=== PATIENT | female | born 1970 | race African-American/Black ===

== ENCOUNTER 2020-10-15 12:00 | Inpatient (IN) | payer OTHER ==
[2020-11-21 12:00] VITALS: BMI 28.1
[2020-11-26] MEDS ORDERED: LIDOCAINE HCL/PF 2% SDV 5ML VIAL ONE (10:13)
[2020-11-26] MEDS ORDERED: PROPOFOL 20 ML ONE (10:13)
[2020-11-26] MEDS ORDERED: fentaNYL CITRATE 250 MCG/5 ML VIAL ONE (10:13)
[2020-11-26] MEDS ORDERED: MIDAZOLAM HCL 2 MG/2 ML SINGLE DOSE VIAL ONE ×2 (10:14)
[2020-11-26] MEDS ORDERED: ROCURONIUM BROMIDE 50 MG/5 ML SYRINGE ONE (10:14)
[2020-11-26] MEDS ORDERED: ceFAZolin SODIUM 1 GM VIAL ONE (12:14)
[2020-11-26] MEDS ORDERED: ceFAZolin SODIUM 1 GM VIAL IVPB ONE (12:14)
[2020-11-26] MEDS ORDERED: GLYCOPYRROLATE 0.2 MG/1 ML VIAL ONE (13:31)
[2020-11-26] MEDS ORDERED: NEOSTIGMINE METHYLSULFATE 0.5 MG/1 ML - 10 ML MDV ONE (13:31)
[2020-11-26] MEDS ORDERED: KETOROLAC TROMETHAMINE 30 MG/1 ML VIAL ONE (13:36)
[2020-11-26] MEDS ORDERED: IBUPROFEN 800 MG/8 ML IJ IVPB PRN (13:56)
[2020-11-26] MEDS ORDERED: oxyCODONE HCL 5 MG TABLET PO PRN ×5 (13:56→14:48)
[2020-11-26] MEDS ORDERED: IBUPROFEN 600 MG TABLET (FP) PO PRN (14:09)
[2020-11-26] MEDS ORDERED: ACETAMINOPHEN 325 MG TABLET (FP) PO PRN (14:09)
[2020-11-26] MEDS ORDERED: SODIUM CHLORIDE 0.9% 500 ML INFUS.BAG IV ONE (14:37)
[2020-11-26] MEDS ORDERED: ONDANSETRON 4 MG/2 ML VIAL IVPUSH PRN ×2 (14:46→14:47)
[2020-11-26] MEDS ORDERED: traMADol HCL 50 MG TABLET PO PRN (14:46)
[2020-11-26] MEDS ORDERED: LACTATED RINGERS SOLUTION 1,000 ML IV SCH ×2 (15:00)
[2020-11-26 17:57] LABS: BASO % 0.1 % (0-2.0); HEMATOCRIT 29.8 % (32.4-45.2); HEMOGLOBIN 9.9 GM/dL (10.7-15.3); MCH 30.4 pg (25.7-33.7); MCHC 33.3 g/dl (32.0-36.0); MEAN CELL VOLUME 91.4 fl (80-96); MEAN PLT VOLUME 9.2 fl (7.5-11.1); MONO % 4.6 % (3.8-10.2); NEUT % 87.3 % (42.8-82.8); PLATELET COUNT 230 K/MM3 (134-434); RBC 3.26 M/mm3 (3.60-5.2); RDW 14.6 % (11.6-15.6); WHITE BLOOD COUNT 11.5 K/mm3 (4.0-10.0)
[2020-11-27 09:09] LABS: BASO % 0.2 % (0-2.0); HEMOGLOBIN 7.5 GM/dL (10.7-15.3); LYMPH % 19.4 % (8-40); MCH 30.9 pg (25.7-33.7); MCHC 33.9 g/dl (32.0-36.0); MEAN CELL VOLUME 91.2 fl (80-96); MEAN PLT VOLUME 8.9 fl (7.5-11.1); MONO % 10.9 % (3.8-10.2); NEUT % 69.5 % (42.8-82.8); PLATELET COUNT 214 K/MM3 (134-434); RBC 2.41 M/mm3 (3.60-5.2); RDW 14.5 % (11.6-15.6); WHITE BLOOD COUNT 8.6 K/mm3 (4.0-10.0)
[2020-11-27] MEDS: FERROUS SO4 325 MG TABLET (FP) PO SCH (10:29)
[2020-11-27] MEDS: IBUPROFEN 600 MG TABLET (FP) PO SCH ×4 (11:22→22:44)
[2020-11-27] MEDS: ACETAMINOPHEN 325 MG TABLET (FP) PO SCH ×2 (15:52→19:46)
[2020-11-27] MEDS ORDERED: oxyCODONE HCL 5 MG TABLET PO ONE (21:00)
[2020-11-28] MEDS: ACETAMINOPHEN 325 MG TABLET (FP) PO SCH ×6 (00:08→23:45)
[2020-11-28 09:26] LABS: BASO % 0.5 % (0-2.0); EOS % 0.3 % (0-4.5); HEMATOCRIT 18.2 % (32.4-45.2); LYMPH % 20.6 % (8-40); MCH 31.6 pg (25.7-33.7); MEAN CELL VOLUME 90.1 fl (80-96); MEAN PLT VOLUME 8.6 fl (7.5-11.1); MONO % 8.7 % (3.8-10.2); NEUT % 69.9 % (42.8-82.8); PLATELET COUNT 174 K/MM3 (134-434); RBC 2.03 M/mm3 (3.60-5.2); RDW 14.5 % (11.6-15.6); WHITE BLOOD COUNT 8.3 K/mm3 (4.0-10.0)
[2020-11-28 09:32] LABS: HEMOGLOBIN 6.4 GM/dL (10.7-15.3)
[2020-11-28] MEDS: IBUPROFEN 600 MG TABLET (FP) PO SCH ×5 (10:08→22:43)
[2020-11-28] MEDS: FERROUS SO4 325 MG TABLET (FP) PO SCH (10:09)
[2020-11-28 16:18] LABS: BASO % 0.4 % (0-2.0); EOS % 0.4 % (0-4.5); HEMATOCRIT 18.2 % (32.4-45.2); LYMPH % 22.9 % (8-40); MCH 30.4 pg (25.7-33.7); MCHC 33.1 g/dl (32.0-36.0); MEAN PLT VOLUME 9.1 fl (7.5-11.1); MONO % 8.9 % (3.8-10.2); NEUT % 67.4 % (42.8-82.8); PLATELET COUNT 170 K/MM3 (134-434); RBC 1.97 M/mm3 (3.60-5.2); RDW 15.2 % (11.6-15.6); WHITE BLOOD COUNT 7.4 K/mm3 (4.0-10.0)
[2020-11-29 03:20] LABS: BASO % 0.6 % (0-2.0); HEMATOCRIT 20.1 % (32.4-45.2); HEMOGLOBIN 6.7 GM/dL (10.7-15.3); MCH 30.8 pg (25.7-33.7); MCHC 33.5 g/dl (32.0-36.0); MEAN PLT VOLUME 9.1 fl (7.5-11.1); MONO % 10.1 % (3.8-10.2); NEUT % 57.3 % (42.8-82.8); PLATELET COUNT 167 K/MM3 (134-434); RBC 2.19 M/mm3 (3.60-5.2); RDW 14.8 % (11.6-15.6); WHITE BLOOD COUNT 7.3 K/mm3 (4.0-10.0)
[2020-11-29] MEDS: ACETAMINOPHEN 325 MG TABLET (FP) PO SCH ×2 (04:00→06:38)
[2020-11-29] MEDS ORDERED: DOCUSATE SODIUM 100 MG CAPSULE (FP) PO PRN (08:25)
[2020-11-29 08:40] LABS: BASO % 0.5 % (0-2.0); EOS % 1.2 % (0-4.5); HEMATOCRIT 20.1 % (32.4-45.2); LYMPH % 29.2 % (8-40); MCH 31.4 pg (25.7-33.7); MCHC 34.5 g/dl (32.0-36.0); MONO % 10.2 % (3.8-10.2); NEUT % 58.9 % (42.8-82.8); PLATELET COUNT 190 K/MM3 (134-434); RBC 2.21 M/mm3 (3.60-5.2); RDW 14.2 % (11.6-15.6); WHITE BLOOD COUNT 7.1 K/mm3 (4.0-10.0)
[2020-11-29 09:05] LABS: HEMOGLOBIN 6.9 GM/dL (10.7-15.3)
[2020-11-29] MEDS: IBUPROFEN 600 MG TABLET (FP) PO SCH ×2 (09:36→11:49)
[2020-11-29] MEDS: FERROUS SO4 325 MG TABLET (FP) PO SCH (09:36)
[2020-11-29 14:36] VITALS: BP 132/69; PULSE 93; TEMP 98.6
== END 2020-11-29 15:19 | disposition home or self-care (01) | DRG 743 ==
LOC: J2C 11-26 04:31 → J6S 11-26 15:49
PROVIDERS: ADMIT Student in an Organized Health Care Education/Training Program; ATTEND Student in an Organized Health Care Education/Training Program
PROC: 0UT70ZZ Resection of Bilateral Fallopian Tubes, Open Approach (ICD-10-PCS; 2020-11-26)
PROC: 0UT90ZZ Resection of Uterus, Open Approach (ICD-10-PCS; principal; 2020-11-26 11:30)
DX: D25.9 Leiomyoma of uterus, unspecified (principal)
CPT/HCPCS: 36415; 36430; 81025; 85025; 86850; 86900; 86901; 86922; 88302-TC; 88307-TC; 93005; 93010; 94760; P9058

== ENCOUNTER 2020-12-10 09:35 | Inpatient (IN) | payer OTHER ==
[2020-12-10] MEDS ORDERED: SODIUM CHLORIDE 0.9% 500 ML INFUS.BAG IV ONE (11:42)
[2020-12-10] MEDS ORDERED: PIPERACILLIN/TAZOB 3.375 GM 3.375 GM/50 ML BAG IVPB ONE (12:02)
[2020-12-10] MEDS: PIPERACILLIN/TAZOB 3.375 GM 3.375 GM in DEXTROSE 5%-WATER - 50 ML IVPB SCH ×3 (12:03→21:38)
[2020-12-10] MEDS: SODIUM CHLORIDE 1,000 ML IV SCH ×2 (12:10→21:34)
[2020-12-10 12:42] LABS: BASO % 0.3 % (0-2.0); EOS % 0.2 % (0-4.5); HEMATOCRIT 20.2 % (32.4-45.2); LYMPH % 11.1 % (8-40); MCH 30.6 pg (25.7-33.7); MCHC 34.1 g/dl (32.0-36.0); MEAN CELL VOLUME 89.7 fl (80-96); MEAN PLT VOLUME 7.5 fl (7.5-11.1); MONO % 8.6 % (3.8-10.2); NEUT % 79.8 % (42.8-82.8); PLATELET COUNT 701 K/MM3 (134-434); RBC 2.25 M/mm3 (3.60-5.2); RDW 16.4 % (11.6-15.6); WHITE BLOOD COUNT 18.4 K/mm3 (4.0-10.0)
[2020-12-10 12:50] LABS: INR 1.51 (0.83-1.09)
[2020-12-10 12:53] LABS: ACTIVATED PTT 28.7 SECONDS (25.2-36.5)
[2020-12-10 12:55] LABS: HEMOGLOBIN 6.9 GM/dL (10.7-15.3)
[2020-12-10 13:00] LABS: POTASSIUM 3.7 mmol/L (3.5-5.1)
[2020-12-10 13:02] LABS: ALBUMIN 2.1 g/dl (3.4-5.0); BLOOD UREA NITROGEN 9.2 mg/dL (7-18)
[2020-12-10 13:06] LABS: CREATININE 0.8 mg/dL (0.55-1.3)
[2020-12-10 13:07] LABS: BILIRUBIN,TOTAL 0.6 mg/dL (0.2-1); TOT PROT 6.6 g/dl (6.4-8.2)
[2020-12-10 13:08] LABS: CALCIUM 8.5 mg/dL (8.5-10.1)
[2020-12-10] MEDS ORDERED: CEFAZOLIN 1 GM/D5W 1 GM/50 ML BAG IVPB SCH (14:00)
[2020-12-10 14:55] LABS: ANISOCYTOSIS 1+; MACROCYTOSIS 0; PLATELET ESTIMATE INCREASED; TARGET CELLS 2+; TEAR DROP CELLS 1+; TOXIC GRANULATION 2+
[2020-12-10 18:07] LABS: EPI CELLS >36 /uL (0-25.1); HYALINE CASTS 11 /uL (0-3.1); PH,URINE 5.5 (5.0-8.0); URINE APPEARANCE CLOUDY; URINE BACTERIA 1464 /uL (0-1359); URINE BILIRUBIN NEGATIVE (NEGATIVE); URINE COLOR YELLOW; URINE GLUCOSE (UA) NEGATIVE (NEGATIVE); URINE KETONE NEGATIVE (NEGATIVE); URINE LEUK ESTERASE 1+ (NEGATIVE); URINE NITRITE NEGATIVE (NEGATIVE); URINE PROTEIN 1+ (NEGATIVE); URINE UROBILINOGEN 0.2 mg/dL (0.2-1.0); URINE WBC 354 /uL (0-25.8)
[2020-12-10 18:30] LABS: URINE RBC 42.1 /uL (0-23.9)
[2020-12-10] MEDS ORDERED: ACETAMINOPHEN 325 MG TABLET (FP) PO ONE (18:44)
[2020-12-10] MEDS: DOCUSATE SODIUM 100 MG CAPSULE (FP) PO SCH (19:40)
[2020-12-10] MEDS ORDERED: PIPERACILLIN/TAZOBACTAM 3.375 GM VIAL IVPB ONE (21:29)
[2020-12-10] MEDS ORDERED: DEXTROSE 5%-WATER - 50 ML IVPB ONE (21:29)
[2020-12-11] MEDS ORDERED: DEXTROSE 5%-WATER - 50 ML IVPB ONE ×3 (04:13→14:13)
[2020-12-11] MEDS ORDERED: PIPERACILLIN/TAZOBACTAM 3.375 GM VIAL IVPB ONE ×3 (04:13→14:12)
[2020-12-11] MEDS: PIPERACILLIN/TAZOB 3.375 GM 3.375 GM in DEXTROSE 5%-WATER - 50 ML IVPB SCH ×3 (04:17→15:50)
[2020-12-11 08:16] VITALS: BMI 28.3
[2020-12-11 09:31] LABS: BASO % 0.6 % (0-2.0); EOS % 0.1 % (0-4.5); HEMATOCRIT 23.9 % (32.4-45.2); HEMOGLOBIN 8.3 GM/dL (10.7-15.3); LYMPH % 11.2 % (8-40); MCH 30.6 pg (25.7-33.7); MCHC 34.7 g/dl (32.0-36.0); MEAN CELL VOLUME 88.3 fl (80-96); MEAN PLT VOLUME 7.1 fl (7.5-11.1); MONO % 8.6 % (3.8-10.2); NEUT % 79.5 % (42.8-82.8); PLATELET COUNT 669 K/MM3 (134-434); RBC 2.71 M/mm3 (3.60-5.2); RDW 14.9 % (11.6-15.6); WHITE BLOOD COUNT 19.6 K/mm3 (4.0-10.0)
[2020-12-11 10:00] LABS: POTASSIUM 3.7 mmol/L (3.5-5.1)
[2020-12-11 10:07] LABS: ALBUMIN 1.9 g/dl (3.4-5.0); BLOOD UREA NITROGEN 7.3 mg/dL (7-18); CALCIUM 8.1 mg/dL (8.5-10.1)
[2020-12-11 10:10] LABS: CREATININE 0.8 mg/dL (0.55-1.3)
[2020-12-11] MEDS: DOCUSATE SODIUM 100 MG CAPSULE (FP) PO SCH (10:10)
[2020-12-11 10:12] LABS: BILIRUBIN,TOTAL 1.1 mg/dL (0.2-1); TOT PROT 6.2 g/dl (6.4-8.2)
[2020-12-11] MEDS: ACETAMINOPHEN 325 MG TABLET (FP) PO PRN (14:03)
[2020-12-11] MEDS: SODIUM CHLORIDE 1,000 ML IV SCH (16:04)
[2020-12-11] MEDS ORDERED: SODIUM CHLORIDE 1,000 ML IV STA (18:48)
[2020-12-11] MEDS ORDERED: ZOLPIDEM TARTRATE 5 MG TABLET PO PRN (18:55)
[2020-12-11] MEDS ORDERED: PIPERACILLIN/TAZOB 3.375 GM 3.375 GM in DEXTROSE 5%-WATER - 50 ML IVPB SCH (21:00)
[2020-12-11] MEDS: oxyCODONE HCL 5 MG TABLET PO PRN (23:16)
[2020-12-12] MEDS ORDERED: DEXTROSE 5%-WATER - 50 ML IVPB ONE ×3 (01:39→16:58)
[2020-12-12] MEDS ORDERED: PIPERACILLIN/TAZOBACTAM 3.375 GM VIAL IVPB ONE ×3 (01:39→16:58)
[2020-12-12] MEDS: PIPERACILLIN/TAZOB 3.375 GM 3.375 GM in DEXTROSE 5%-WATER - 50 ML IVPB SCH ×3 (02:13→17:10)
[2020-12-12] MEDS: ACETAMINOPHEN 325 MG TABLET (FP) PO PRN ×2 (02:46→14:53)
[2020-12-12 08:47] LABS: INR 1.68 (0.83-1.09)
[2020-12-12 09:10] LABS: POTASSIUM 3.7 mmol/L (3.5-5.1)
[2020-12-12 09:16] LABS: BLOOD UREA NITROGEN 6.7 mg/dL (7-18)
[2020-12-12 09:18] LABS: CALCIUM 8.4 mg/dL (8.5-10.1)
[2020-12-12 09:20] LABS: CREATININE 0.8 mg/dL (0.55-1.3)
[2020-12-12 09:22] LABS: BILIRUBIN,TOTAL 0.8 mg/dL (0.2-1); TOT PROT 6.6 g/dl (6.4-8.2)
[2020-12-12 09:25] LABS: BASO % 0.4 % (0-2.0); EOS % 0.2 % (0-4.5); HEMATOCRIT 25.6 % (32.4-45.2); HEMOGLOBIN 8.9 GM/dL (10.7-15.3); LYMPH % 9.5 % (8-40); MCH 31.1 pg (25.7-33.7); MCHC 34.6 g/dl (32.0-36.0); MEAN CELL VOLUME 89.8 fl (80-96); MONO % 7.2 % (3.8-10.2); NEUT % 82.7 % (42.8-82.8); PLATELET COUNT 779 K/MM3 (134-434); RBC 2.85 M/mm3 (3.60-5.2); RDW 15.3 % (11.6-15.6); WHITE BLOOD COUNT 22.2 K/mm3 (4.0-10.0)
[2020-12-12] MEDS: DOCUSATE SODIUM 100 MG CAPSULE (FP) PO SCH (09:52)
[2020-12-12 10:45] LABS: ANISOCYTOSIS 2+; MACROCYTOSIS 0; PLATELET ESTIMATE INCREASED
[2020-12-12] MEDS ORDERED: MIDAZOLAM HCL 2 MG/2 ML SINGLE DOSE VIAL ONE (11:32)
[2020-12-12] MEDS ORDERED: MIDAZOLAM HCL 2 MG/2 ML SINGLE DOSE VIAL IVPUSH ONE ×2 (12:17→12:25)
[2020-12-12] MEDS: oxyCODONE HCL 5 MG TABLET PO PRN ×2 (14:56→21:54)
[2020-12-13] MEDS ORDERED: PIPERACILLIN/TAZOBACTAM 3.375 GM VIAL IVPB ONE ×3 (01:18→17:58)
[2020-12-13] MEDS ORDERED: DEXTROSE 5%-WATER - 50 ML IVPB ONE ×3 (01:18→17:58)
[2020-12-13] MEDS: PIPERACILLIN/TAZOB 3.375 GM 3.375 GM in DEXTROSE 5%-WATER - 50 ML IVPB SCH ×4 (01:52→18:22)
[2020-12-13 09:01] LABS: BASO % 0.4 % (0-2.0); EOS % 0.4 % (0-4.5); HEMATOCRIT 25.3 % (32.4-45.2); HEMOGLOBIN 8.6 GM/dL (10.7-15.3); LYMPH % 10.1 % (8-40); MCH 30.6 pg (25.7-33.7); MEAN CELL VOLUME 90.1 fl (80-96); MONO % 6.1 % (3.8-10.2); PLATELET COUNT 725 K/MM3 (134-434); RBC 2.81 M/mm3 (3.60-5.2); RDW 15.6 % (11.6-15.6)
[2020-12-13] MEDS: DOCUSATE SODIUM 100 MG CAPSULE (FP) PO SCH (09:08)
[2020-12-13 09:12] LABS: POTASSIUM 3.8 mmol/L (3.5-5.1)
[2020-12-13 09:22] LABS: CALCIUM 8.4 mg/dL (8.5-10.1)
[2020-12-13 09:25] LABS: CREATININE 0.7 mg/dL (0.55-1.3)
[2020-12-13 09:27] LABS: BILIRUBIN,TOTAL 0.6 mg/dL (0.2-1); TOT PROT 6.3 g/dl (6.4-8.2)
[2020-12-13] MEDS: ACETAMINOPHEN 325 MG TABLET (FP) PO PRN (16:37)
[2020-12-13] MEDS ORDERED: ACETAMINOPHEN 325 MG TABLET (FP) PO PRN (19:16)
[2020-12-14] MEDS ORDERED: PIPERACILLIN/TAZOBACTAM 3.375 GM VIAL IVPB ONE ×3 (01:16→17:01)
[2020-12-14] MEDS ORDERED: DEXTROSE 5%-WATER - 50 ML IVPB ONE ×3 (01:16→17:01)
[2020-12-14] MEDS: PIPERACILLIN/TAZOB 3.375 GM 3.375 GM in DEXTROSE 5%-WATER - 50 ML IVPB SCH ×3 (01:51→17:35)
[2020-12-14] MEDS: oxyCODONE HCL 5 MG TABLET PO PRN (02:10)
[2020-12-14 09:17] LABS: BASO % 0.5 % (0-2.0); EOS % 0.5 % (0-4.5); HEMATOCRIT 25.7 % (32.4-45.2); HEMOGLOBIN 8.6 GM/dL (10.7-15.3); LYMPH % 11.5 % (8-40); MCH 30.4 pg (25.7-33.7); MCHC 33.3 g/dl (32.0-36.0); MEAN CELL VOLUME 91.4 fl (80-96); MONO % 7.6 % (3.8-10.2); NEUT % 79.9 % (42.8-82.8); PLATELET COUNT 749 K/MM3 (134-434); RBC 2.82 M/mm3 (3.60-5.2); RDW 15.4 % (11.6-15.6); WHITE BLOOD COUNT 16.7 K/mm3 (4.0-10.0)
[2020-12-14 09:43] LABS: POTASSIUM 3.7 mmol/L (3.5-5.1)
[2020-12-14] MEDS: DOCUSATE SODIUM 100 MG CAPSULE (FP) PO SCH (09:52)
[2020-12-14 10:12] LABS: CALCIUM 8.5 mg/dL (8.5-10.1)
[2020-12-14 10:13] LABS: ALBUMIN 2.1 g/dl (3.4-5.0); BLOOD UREA NITROGEN 4.9 mg/dL (7-18)
[2020-12-14 10:16] LABS: CREATININE 0.8 mg/dL (0.55-1.3)
[2020-12-14 10:18] LABS: BILIRUBIN,TOTAL 0.5 mg/dL (0.2-1); TOT PROT 6.8 g/dl (6.4-8.2)
[2020-12-14] MEDS: FERROUS SO4 325 MG TABLET (FP) PO SCH (13:18)
[2020-12-14] MEDS: IBUPROFEN 600 MG TABLET (FP) PO PRN ×2 (17:34→23:01)
[2020-12-14 21:11] LABS: HEP B CORE AB, TOT Negative (Negative)
[2020-12-15] MEDS ORDERED: PIPERACILLIN/TAZOBACTAM 3.375 GM VIAL IVPB ONE ×3 (01:37→17:37)
[2020-12-15] MEDS ORDERED: DEXTROSE 5%-WATER - 50 ML IVPB ONE ×3 (01:37→17:38)
[2020-12-15] MEDS: PIPERACILLIN/TAZOB 3.375 GM 3.375 GM in DEXTROSE 5%-WATER - 50 ML IVPB SCH ×3 (02:25→17:43)
[2020-12-15 09:11] LABS: BASO % 0.4 % (0-2.0); EOS % 0.6 % (0-4.5); HEMATOCRIT 25.9 % (32.4-45.2); HEMOGLOBIN 8.8 GM/dL (10.7-15.3); LYMPH % 11.2 % (8-40); MCH 30.9 pg (25.7-33.7); MEAN CELL VOLUME 90.9 fl (80-96); MEAN PLT VOLUME 6.8 fl (7.5-11.1); NEUT % 80.8 % (42.8-82.8); PLATELET COUNT 809 K/MM3 (134-434); RBC 2.85 M/mm3 (3.60-5.2); RDW 15.3 % (11.6-15.6); WHITE BLOOD COUNT 14.8 K/mm3 (4.0-10.0)
[2020-12-15] MEDS: DOCUSATE SODIUM 100 MG CAPSULE (FP) PO SCH (10:33)
[2020-12-15] MEDS: FERROUS SO4 325 MG TABLET (FP) PO SCH (10:33)
[2020-12-15] MEDS: IBUPROFEN 600 MG TABLET (FP) PO PRN ×2 (10:50→17:41)
[2020-12-16] MEDS ORDERED: DEXTROSE 5%-WATER - 50 ML IVPB ONE ×3 (03:06→17:04)
[2020-12-16] MEDS ORDERED: PIPERACILLIN/TAZOBACTAM 3.375 GM VIAL IVPB ONE ×3 (03:06→17:04)
[2020-12-16] MEDS: IBUPROFEN 600 MG TABLET (FP) PO PRN ×2 (03:08→14:49)
[2020-12-16] MEDS: PIPERACILLIN/TAZOB 3.375 GM 3.375 GM in DEXTROSE 5%-WATER - 50 ML IVPB SCH ×3 (03:09→17:34)
[2020-12-16 08:53] LABS: BASO % 0.5 % (0-2.0); EOS % 0.5 % (0-4.5); HEMATOCRIT 25.7 % (32.4-45.2); HEMOGLOBIN 8.7 GM/dL (10.7-15.3); LYMPH % 11.9 % (8-40); MCH 30.7 pg (25.7-33.7); MEAN CELL VOLUME 90.1 fl (80-96); MEAN PLT VOLUME 6.9 fl (7.5-11.1); MONO % 6.1 % (3.8-10.2); PLATELET COUNT 781 K/MM3 (134-434); RBC 2.85 M/mm3 (3.60-5.2); WHITE BLOOD COUNT 15.9 K/mm3 (4.0-10.0)
[2020-12-16] MEDS: DOCUSATE SODIUM 100 MG CAPSULE (FP) PO SCH (10:02)
[2020-12-16] MEDS: FERROUS SO4 325 MG TABLET (FP) PO SCH (10:02)
[2020-12-17] MEDS ORDERED: PIPERACILLIN/TAZOBACTAM 3.375 GM VIAL IVPB ONE ×3 (02:35→17:10)
[2020-12-17] MEDS ORDERED: DEXTROSE 5%-WATER - 50 ML IVPB ONE ×3 (02:35→17:11)
[2020-12-17] MEDS: PIPERACILLIN/TAZOB 3.375 GM 3.375 GM in DEXTROSE 5%-WATER - 50 ML IVPB SCH ×3 (02:43→17:22)
[2020-12-17 09:25] LABS: BASO % 0.5 % (0-2.0); EOS % 0.1 % (0-4.5); HEMATOCRIT 24.8 % (32.4-45.2); HEMOGLOBIN 8.4 GM/dL (10.7-15.3); LYMPH % 8.9 % (8-40); MCH 31.1 pg (25.7-33.7); MCHC 33.9 g/dl (32.0-36.0); MEAN CELL VOLUME 91.8 fl (80-96); MEAN PLT VOLUME 7.2 fl (7.5-11.1); MONO % 7.3 % (3.8-10.2); NEUT % 83.2 % (42.8-82.8); PLATELET COUNT 724 K/MM3 (134-434); RBC 2.71 M/mm3 (3.60-5.2); RDW 15.6 % (11.6-15.6); WHITE BLOOD COUNT 16.5 K/mm3 (4.0-10.0)
[2020-12-17 09:35] LABS: INR 1.4 (0.83-1.09)
[2020-12-17] MEDS: FERROUS SO4 325 MG TABLET (FP) PO SCH (09:39)
[2020-12-17 09:49] LABS: POTASSIUM 4.3 mmol/L (3.5-5.1)
[2020-12-17 09:52] LABS: CALCIUM 8.4 mg/dL (8.5-10.1)
[2020-12-17 09:53] LABS: ALBUMIN 2.2 g/dl (3.4-5.0); BLOOD UREA NITROGEN 5.5 mg/dL (7-18)
[2020-12-17 09:56] LABS: CREATININE 0.7 mg/dL (0.55-1.3)
[2020-12-17 09:58] LABS: BILIRUBIN,TOTAL 0.9 mg/dL (0.2-1); TOT PROT 6.9 g/dl (6.4-8.2)
[2020-12-17] MEDS ORDERED: MIDAZOLAM HCL 2 MG/2 ML SINGLE DOSE VIAL IVPUSH ONE ×2 (13:20→13:30)
[2020-12-17] MEDS: oxyCODONE HCL 5 MG TABLET PO PRN (15:26)
[2020-12-18] MEDS ORDERED: PIPERACILLIN/TAZOBACTAM 3.375 GM VIAL IVPB ONE ×3 (00:38→18:23)
[2020-12-18] MEDS ORDERED: DEXTROSE 5%-WATER - 50 ML IVPB ONE ×3 (00:39→18:24)
[2020-12-18] MEDS: oxyCODONE HCL 5 MG TABLET PO PRN ×2 (01:22→18:27)
[2020-12-18] MEDS: PIPERACILLIN/TAZOB 3.375 GM 3.375 GM in DEXTROSE 5%-WATER - 50 ML IVPB SCH ×3 (01:24→18:46)
[2020-12-18 08:52] LABS: BASO % 0.6 % (0-2.0); EOS % 0.4 % (0-4.5); HEMATOCRIT 25.1 % (32.4-45.2); HEMOGLOBIN 8.4 GM/dL (10.7-15.3); LYMPH % 13.5 % (8-40); MCH 30.7 pg (25.7-33.7); MCHC 33.6 g/dl (32.0-36.0); MEAN CELL VOLUME 91.4 fl (80-96); MEAN PLT VOLUME 7.1 fl (7.5-11.1); MONO % 9.1 % (3.8-10.2); NEUT % 76.4 % (42.8-82.8); PLATELET COUNT 678 K/MM3 (134-434); RBC 2.74 M/mm3 (3.60-5.2); RDW 15.6 % (11.6-15.6); WHITE BLOOD COUNT 9.2 K/mm3 (4.0-10.0)
[2020-12-18] MEDS: FERROUS SO4 325 MG TABLET (FP) PO SCH (09:46)
[2020-12-18] MEDS: IBUPROFEN 600 MG TABLET (FP) PO PRN (11:37)
[2020-12-19] MEDS ORDERED: PIPERACILLIN/TAZOBACTAM 3.375 GM VIAL IVPB ONE ×3 (00:42→18:10)
[2020-12-19] MEDS ORDERED: DEXTROSE 5%-WATER - 50 ML IVPB ONE ×3 (00:42→18:10)
[2020-12-19] MEDS: PIPERACILLIN/TAZOB 3.375 GM 3.375 GM in DEXTROSE 5%-WATER - 50 ML IVPB SCH ×3 (01:59→18:12)
[2020-12-19] MEDS: oxyCODONE HCL 5 MG TABLET PO PRN ×2 (02:20→09:16)
[2020-12-19] MEDS: FERROUS SO4 325 MG TABLET (FP) PO SCH (09:16)
[2020-12-19 09:17] LABS: BASO % 0.6 % (0-2.0); EOS % 0.8 % (0-4.5); HEMATOCRIT 27.8 % (32.4-45.2); HEMOGLOBIN 9.1 GM/dL (10.7-15.3); LYMPH % 15.9 % (8-40); MCH 30.1 pg (25.7-33.7); MCHC 32.7 g/dl (32.0-36.0); MEAN CELL VOLUME 92.1 fl (80-96); MEAN PLT VOLUME 7.3 fl (7.5-11.1); NEUT % 73.7 % (42.8-82.8); PLATELET COUNT 707 K/MM3 (134-434); RBC 3.02 M/mm3 (3.60-5.2); RDW 15.6 % (11.6-15.6); WHITE BLOOD COUNT 9.4 K/mm3 (4.0-10.0)
[2020-12-19 09:30] LABS: POTASSIUM 4.1 mmol/L (3.5-5.1)
[2020-12-19 09:47] LABS: BILIRUBIN,TOTAL 0.4 mg/dL (0.2-1)
[2020-12-19 09:48] LABS: TOT PROT 7.5 g/dl (6.4-8.2)
[2020-12-19 10:03] LABS: ALBUMIN 2.2 g/dl (3.4-5.0); BLOOD UREA NITROGEN 6.3 mg/dL (7-18)
[2020-12-19 10:06] LABS: CREATININE 0.7 mg/dL (0.55-1.3)
[2020-12-19] MEDS: IBUPROFEN 600 MG TABLET (FP) PO PRN ×2 (15:27→21:46)
[2020-12-20] MEDS ORDERED: PIPERACILLIN/TAZOBACTAM 3.375 GM VIAL IVPB ONE ×3 (01:05→17:39)
[2020-12-20] MEDS ORDERED: DEXTROSE 5%-WATER - 50 ML IVPB ONE ×3 (01:05→17:39)
[2020-12-20] MEDS: PIPERACILLIN/TAZOB 3.375 GM 3.375 GM in DEXTROSE 5%-WATER - 50 ML IVPB SCH ×3 (01:31→17:41)
[2020-12-20] MEDS: IBUPROFEN 600 MG TABLET (FP) PO PRN (08:15)
[2020-12-20 08:29] LABS: BASO % 0.9 % (0-2.0); EOS % 1.7 % (0-4.5); HEMATOCRIT 25.6 % (32.4-45.2); HEMOGLOBIN 8.5 GM/dL (10.7-15.3); LYMPH % 19.6 % (8-40); MCH 30.3 pg (25.7-33.7); MCHC 33.2 g/dl (32.0-36.0); MEAN CELL VOLUME 91.3 fl (80-96); MEAN PLT VOLUME 7.3 fl (7.5-11.1); MONO % 9.9 % (3.8-10.2); NEUT % 67.9 % (42.8-82.8); PLATELET COUNT 702 K/MM3 (134-434); RBC 2.81 M/mm3 (3.60-5.2); RDW 14.8 % (11.6-15.6); WHITE BLOOD COUNT 6.8 K/mm3 (4.0-10.0)
[2020-12-20] MEDS: oxyCODONE HCL 5 MG TABLET PO PRN ×3 (09:28→22:34)
[2020-12-20] MEDS: FERROUS SO4 325 MG TABLET (FP) PO SCH (09:29)
[2020-12-20] MEDS: metroNIDAZOLE 250 MG TABLET PO SCH (21:35)
[2020-12-20] MEDS: AMOXICILLIN 500 MG CAPSULE (FP) PO SCH (21:35)
[2020-12-21] MEDS: AMOXICILLIN 500 MG CAPSULE (FP) PO SCH ×2 (05:32→14:28)
[2020-12-21] MEDS: oxyCODONE HCL 5 MG TABLET PO PRN ×2 (05:32→15:01)
[2020-12-21] MEDS: metroNIDAZOLE 250 MG TABLET PO SCH ×2 (05:32→14:28)
[2020-12-21 09:30] LABS: BASO % 0.8 % (0-2.0); EOS % 1.2 % (0-4.5); HEMATOCRIT 28.4 % (32.4-45.2); HEMOGLOBIN 9.5 GM/dL (10.7-15.3); LYMPH % 25.8 % (8-40); MCH 30.3 pg (25.7-33.7); MCHC 33.5 g/dl (32.0-36.0); MEAN CELL VOLUME 90.6 fl (80-96); MEAN PLT VOLUME 7.3 fl (7.5-11.1); MONO % 9.6 % (3.8-10.2); NEUT % 62.6 % (42.8-82.8); PLATELET COUNT 749 K/MM3 (134-434); RBC 3.13 M/mm3 (3.60-5.2); RDW 14.9 % (11.6-15.6); WHITE BLOOD COUNT 6.6 K/mm3 (4.0-10.0)
[2020-12-21] MEDS ORDERED: PT OWN MED DRAWER 7, Y5N ONE (09:42)
[2020-12-21] MEDS: FERROUS SO4 325 MG TABLET (FP) PO SCH (09:58)
[2020-12-21 10:07] LABS: POTASSIUM 4.6 mmol/L (3.5-5.1)
[2020-12-21 10:09] LABS: ALBUMIN 2.3 g/dl (3.4-5.0); BLOOD UREA NITROGEN 6.4 mg/dL (7-18); CALCIUM 9.3 mg/dL (8.5-10.1)
[2020-12-21 10:12] LABS: CREATININE 0.7 mg/dL (0.55-1.3)
[2020-12-21 10:14] LABS: BILIRUBIN,TOTAL 0.3 mg/dL (0.2-1); TOT PROT 7.8 g/dl (6.4-8.2)
[2020-12-21 14:36] VITALS: BP 156/83; PULSE 95; TEMP 98.4
== END 2020-12-21 18:49 | disposition home or self-care (01) | DRG 862 ==
LOC: JER 09:35 → UNDOADMIN 11:12 → JERBED 11:12 → JASUSAT 11:14 → J2C 13:56 → J6S 21:04
PROVIDERS: ADMIT Student in an Organized Health Care Education/Training Program; ATTEND Student in an Organized Health Care Education/Training Program
PROC: 30233N1 Transfusion of Nonautologous Red Blood Cells into Peripheral Vein, Percutaneous Approach (ICD-10-PCS; 2020-12-10)
PROC: 0W9G30Z Drainage of Peritoneal Cavity with Drainage Device, Percutaneous Approach (ICD-10-PCS; principal; 2020-12-12)
PROC: 0F9130Z Drainage of Right Lobe Liver with Drainage Device, Percutaneous Approach (ICD-10-PCS; 2020-12-17)
PROC: 0WPGX0Z Removal of Drainage Device from Peritoneal Cavity, External Approach (ICD-10-PCS; 2020-12-20)
DX: T81.42XA Infection following a procedure, deep incisional surgical site, initial encounter (principal); K75.0 Abscess of liver; K65.1 Peritoneal abscess; R00.0 Tachycardia, unspecified; D72.829 Elevated white blood cell count, unspecified; N73.9 Female pelvic inflammatory disease, unspecified; Y83.8 Other surgical procedures as the cause of abnormal reaction of the patient, or of later complication, without mention of misadventure at the time of the procedure; D47.3 Essential (hemorrhagic) thrombocythemia; R50.9 Fever, unspecified; D18.09 Hemangioma of other sites; B96.20 Unspecified Escherichia coli [E. coli] as the cause of diseases classified elsewhere
CPT/HCPCS: 36415; 36430; 49406; 49407; 71046-TC-FY; 74177-TC; 74178-TC; 74183-TC; 80053; 81003; 83516; 85025; 85610; 85730; 86038; 86704; 86705; 86706; 86707; 86708; 86803; 86850; 86900; 86901; 86922; 87040; 87070; 87075; 87076; 87086; 87102; 87116; 87186; 87205; 87206; 87210; 87522; 88108; 88305-TC; 93005; 93010; 94010; 99285-25; A9579; C9803; P9058; Q9967; U0003